=== PATIENT | male | born 1980 | race Caucasian/White ===

== ENCOUNTER 2019-09-27 10:23 | Emergency (ER) | payer MEDICAID ==
[~2019-09-27] VITALS: Ht 180.3 cm; Wt 70.3 kg
[2019-09-27] MEDS ORDERED: NKM (10:42)
--- NOTE | 2019-09-27 10:44 | NUR ---
ED Nurse Note: Patient walked into ED from home c/o left sided chest pain while taking a deep breath since 09/26/1902/26, non radiating. Patient states he has asthma. Denies n/v, patient in no acute distress at this time.
[2019-09-27 10:47] VITALS: BP 129/75
--- NOTE | 2019-09-27 11:18 | NUR ---
ED Nurse Note: xray at bedside
--- NOTE | 2019-09-27 11:43 | Diagnostic Imaging Report ---
Indication: Chest pain Technique: One view of the chest Comparison: none Findings: Lungs and pleural spaces are clear. Heart size is normal. Impression: No acute process
--- NOTE | 2019-09-27 12:19 | NUR ---
ED Nurse Note: ERMD at bedside
--- NOTE | 2019-09-27 12:23 | Emergency Room Report ---
History of Present Illness General Chief Complaint: Chest Pain Source: Patient Present Illness HPI Patient presents with left-sided chest pain. Its pleuritic, positional. He is not sure when it began. He has been working out in a different way with swimming and using his upper body. This is not exertional. There is been no fever or chills. When he pushes on the area it seems to be tender. This occurred also a month ago. The pain in his chest is rated 10/10 when he presses on it. It is aching and sharp. The patient has not taken any medications for this pain. He is concerned about his heart. The patient is currently taking time office visit [employer] and there is some stress with that. Risk factors: Former smoker and family history rest negative He feels no acid indigestion symptoms and there is no swelling or calf tenderness. There is some pain in his right arch of his foot. No fevers, chills, sore throat, palpitations, nausea, vomiting, diarrhea, dysuria, abdominal pain, shortness of breath, rashes, headache. Allergies: Coded Allergies: No Known Allergies (Unverified , 09/27/19) Patient History Past Medical History: see triage record Social History: Reports: alcohol use; Denies: smoking - Former, drug use Social History Narrative Film added to her taking time off Reviewed Nursing Documentation: PMH: Agreed; PSxH: Agreed Nursing Documentation-PMH Past Medical History: No History, Except For Hx Asthma: Yes Review of Systems All Other Systems: negative except mentioned in HPI Physical Exam Vital Signs Date Time Temp Pulse Resp B/P (MAP) Pulse Ox O2 Delivery O2 Flow Rate FiO2 09/27/19 10:26 97.9 74 18 129/75 (93) 97 Room Air Sp02 EP Interpretation: reviewed, normal General Appearance: well appearing, no apparent distress, GCS 15 Head: normocephalic Eyes: bilateral eye normal inspection, bilateral eye PERRL, bilateral eye EOMI ENT: moist mucus membranes Neck: normal inspection, full range of motion, supple Respiratory: lungs clear, normal breath sounds, other - Left pectoralis tenderness with recreation of pain with palpation Cardiovascular #1: regular rate, rhythm, no edema Gastrointestinal: normal inspection, scaphoid Genitourinary: no CVA tenderness Musculoskeletal: gait/station normal, normal range of motion, no calf tenderness Neurologic: alert, oriented x3, grossly normal Psychiatric: mood/affect normal Skin: normal color, no rash Medical Decision Making Diagnostic Impression: Primary Impression: Chest wall muscle strain Qualified Codes: S29.011A - Strain of muscle and tendon of front wall of thorax, initial encounter ER Course Patient presents with chest pain. Differential includes costochondritis, muscle strain, acute myocardial infarction, pulmonary embolus, pleurisy, pneumothorax amongst others. EKG and chest x-ray are indicated. In addition patient will be treated with ibuprofen. Clinically the patient does not have a pulmonary embolus. EKG normal without injury. Chest x-ray clear no abnormalities. Patient improved with treatment. Pain resolved. Discussed findings with patient and the need for follow-up with his own physician. No medical emergency at this time. Patient stable for outpatient observation observation and treatment. EKG Diagnostic Results Rate: normal Rhythm: NSR ST Segments: no acute changes Rhythm Strip Diag. Results EP Interpretation: yes Rhythm: NSR, no PVC's, no ectopy Chest X-Ray Diagnostic Results Chest X-Ray Diagnostic Results : Chest X-Ray Ordered: Yes # of Views/Limited/Complete: 1 View Indication: Chest Pain Interpretation: no consolidation, no effusion, no pneumothorax Impression: No acute disease Electronically Signed by: Electronically signed by Mauricio Frank MD Last Vital Signs Date Time Temp Pulse Resp B/P (MAP) Pulse Ox O2 Delivery O2 Flow Rate FiO2 09/27/19 12:32 98.0 76 16 125/70 98 Room Air Status: improved Disposition: HOME, SELF-CARE Condition: Improved Scripts Ibuprofen* (MOTRIN*) 600 Mg Tablet 600 MG ORAL Q6H PRN for For Pain, #16 TAB 0 Refills Prov: Mauricio Frank MD 09/27/19 Mauricio Frank MD Sep 27, 2019 12:23
[2019-09-27] MEDS ORDERED: IBUPROFEN600 MG ORAL (12:25)
--- NOTE | 2019-09-27 12:31 | NUR ---
ER DISCHARGE NOTE: Patient is cleared to be discharged per ERMD, pt is aox4, on room air, with stable vital signs. pt was given dc and prescription instructions, pt was able to verbalize understanding, pt id band removed without complications. pt is able to ambulate with steady gait. pt took all belongings.
[2019-09-27 12:32] VITALS: BP 125/70
== END 2019-09-27 12:31 | disposition home or self-care (01) ==
LOC: EMR 12:30
DX: S29.011A Strain of muscle and tendon of front wall of thorax, initial encounter (principal); X58.XXXA Exposure to other specified factors, initial encounter; Y92.9 Unspecified place or not applicable; Z87.891 Personal history of nicotine dependence
CPT/HCPCS: 71045; 93005; Z7502; 99283